=== PATIENT | female | born 1995 | race African-American/Black ===

== ENCOUNTER 2019-12-31 19:40 | Emergency (ER) | payer OTHER ==
[~2019-12-31] VITALS: Ht 157.5 cm; Wt 73.0 kg
[2019-12-31] MEDS ORDERED: LIDOCAINE HCL/EPINEPHRINE 1%-EPI 1:100,000 20 ML VIAL ONE (23:21)
[2020-01-01 00:27] VITALS: BP 126/64
== END 2020-01-01 00:30 | disposition home or self-care (01) ==
LOC: ER 20:11
DX: J45.901 Unspecified asthma with (acute) exacerbation (principal)
CPT/HCPCS: 99283; J3490; 99282